=== PATIENT | male | born 1965 | race Caucasian/White ===

== ENCOUNTER 2017-02-09 15:03 | Emergency (ER) | payer OTHER ==
[2017-02-09 15:12] VITALS: BMI 31.9
[2017-02-09] MEDS ORDERED: PHENERGAN INJ 25 MG ONE (15:17)
[2017-02-09] MEDS ORDERED: DILAUDID INJ ONE (15:17)
[2017-02-09] MEDS ORDERED: DILAUDID INJ IVP PRN (15:21)
[2017-02-09] MEDS ORDERED: PHENERGAN INJ 25 MG IV ONE (15:21)
[2017-02-09] MEDS ORDERED: NS 1000 ML 1,000 ML IV ONE (15:21)
[2017-02-09] MEDS ORDERED: VALIUM INJ IM ONE (16:01)
[2017-02-09] MEDS ORDERED: VALIUM INJ ONE (16:03)
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
== END 2017-02-09 17:27 | disposition home or self-care (01) ==
LOC: ER 15:18
DX: M62.830 Muscle spasm of back (principal); X50.0XXA Overexertion from strenuous movement or load, initial encounter; Y92.69 Other specified industrial and construction area as the place of occurrence of the external cause
CPT/HCPCS: 96365; 96367; 96372; 96374; 96375; 99282; 99283; A4222; J1170; J2550; J3360

== ENCOUNTER 2017-02-12 12:25 | Inpatient (IN) | payer OTHER ==
[2017-02-12 13:12] LABS: BASOPHILS # (AUTO) 0.1 X10^3/uL (0.0-0.1); EOSINOPHILS # (AUTO) 0.1 x10^3/uL (0.0-0.2); MONOCYTES # (AUTO) 0.8 x10^3/uL (0.3-0.8)
[2017-02-12 13:23] LABS: ALANINE AMINOTRANSFERASE 42 Units/L (12-78); ALBUMIN 3.7 g/dL (3.4-5.0); ALKALINE PHOSPHATASE 68 Units/L (46-116); ASPARTATE AMINO TRANSFERASE 24 Units/L (15-37); BLOOD UREA NITROGEN 16 mg/dL (7-18); CALCIUM 9.4 mg/dL (8.5-10.1); CARBON DIOXIDE 29.3 mmol/L (21-32); CHLORIDE 105 mmol/L (98-107); CREATININE 1.45 mg/dL (0.70-1.30); SODIUM 141 mmol/L (136-145); TOTAL PROTEIN 7.1 g/dL (6.4-8.2); eGFR BLACK RACES > 60 (>60); eGFR NON BLACK RACES 55 (>60)
[2017-02-12 13:30] VITALS: BMI 31.1
[2017-02-12 13:40] LABS: BASOPHILS % (AUTO) 0.6 % (0.2-1.0); EOSINOPHILS % (AUTO) 1.2 % (0.9-2.9); HEMOGLOBIN 16.3 g/dL (13.5-18.0); LYMPHOCYTES # (AUTO) 1.9 X10^3/uL (1.3-2.9); LYMPHOCYTES % (AUTO) 21.1 % (21.0-51.0); MEAN CORPUSCULAR HEMOGLOBIN 31.4 pg (27.0-34.0); MEAN CORPUSCULAR HGB CONC 34.6 g/dL (33.0-35.0); MEAN CORPUSCULAR VOLUME 90.6 fL (80.0-100.0); MEAN PLATELET VOLUME 7.8 fL (7.4-11.0); MONOCYTES % (AUTO) 8.6 % (0.0-13.0); NEUTROPHILS # (AUTO) 6.2 x10^3/uL (2.2-4.8); NEUTROPHILS % (AUTO) 68.5 % (42.0-75.0); PLATELET COUNT 230 X10^3/uL (150.0-450.0); RED BLOOD COUNT 5.18 X10^6/uL (4.7-6.0); RED CELL DISTRIBUTION WIDTH 13.1 % (11.6-16.5)
[2017-02-12] MEDS: NS 1000 ML 1,000 ML IV SCH ×2 (14:06→14:08)
[2017-02-12] MEDS: TORADOL 30 MG VIAL IVP SCH ×2 (14:06→18:20)
[2017-02-12] MEDS: SOLU-Medrol 40 MG VIAL IVP SCH ×3 (14:07→22:04)
[2017-02-12] MEDS: VALIUM PO SCH ×2 (14:09→22:04)
--- NOTE | 2017-02-12 17:43 | MRI ---
History: Intractable lower back pain with left lower extremity radiculopathy. Study: MRI lumbar spine without contrast. Comparison: None available. Technique: Multiplanar MR images of the lumbar spine were obtained. No I.V. contrast was administered . Findings: There is anatomic alignment without fracture, listhesis or spondylolysis. Multilevel disc d esiccation with [id number] disc height loss. Associated Schmorl's nodes and type 2 Modic endpla te changes. Otherwise, normal bone marrow signal is seen throughout. Conus medullaris terminates at L 1. Visualized spinal cord is normal in signal characteristics, course, and caliber. 6.0 cm simple marisel earing cyst seen within the right superior renal pole. The soft tissues are otherwise unremarkable. L1-2 disc level: Broad-based disc bulge with small right paracentral disc protrusion causing mild rig ht neural foraminal narrowing. No significant left neural foraminal narrowing or spinal canal stenosi s. Suggestion of a posterior annular tear. L2-3 disc level: No disc protrusion is seen. There is no neural foramina or spinal canal stenosis. L3-4 disc level: Broad-based disc bulge that extends into the lateral recesses causing mild/moderate right and moderate left neural foraminal narrowing. Spinal canal stenosis to 10 mm. L4-5 disc level: Broad-based disc bulge that extends into the lateral recesses causing moderate bilat eral neural foraminal narrowing and spinal canal stenosis to 11 mm. L5-S1 disc level: Broad-based disc bulge with large central disc protrusion causing moderate to sever e bilateral neural foraminal narrowing and spinal canal stenosis to 7 mm. Multilevel mild to moderate facet/ligamentum flavum hypertrophy. Impression: Multilevel degenerative changes of the lumbar spine as above. Reported By:
[2017-02-12] MEDS ORDERED: ZYLOPRIM PO PRN (20:43)
[2017-02-12] MEDS ORDERED: CRESTOR TAB 10 MG PO SCH (21:00)
[2017-02-12] MEDS ORDERED: NexIUM PO SCH (21:00)
[2017-02-12] MEDS ORDERED: NEURONTIN TAB 600 MG PO SCH (21:00)
[2017-02-12] MEDS: TEMOVATE CREAM TOP SCH (22:03)
[2017-02-13] MEDS: SOLU-Medrol 40 MG VIAL IVP SCH ×2 (05:59→13:05)
[2017-02-13] MEDS: VALIUM PO SCH ×2 (05:59→13:05)
[2017-02-13] MEDS: TORADOL 30 MG VIAL IVP SCH ×3 (06:00→13:05)
[2017-02-13] MEDS: NS 1000 ML 1,000 ML IV SCH (06:05)
[2017-02-13 06:16] LABS: ALANINE AMINOTRANSFERASE 42 Units/L (12-78); ALBUMIN 3.6 g/dL (3.4-5.0); ALKALINE PHOSPHATASE 68 Units/L (46-116); ASPARTATE AMINO TRANSFERASE 24 Units/L (15-37); BLOOD UREA NITROGEN 19 mg/dL (7-18); CALCIUM 9.5 mg/dL (8.5-10.1); CARBON DIOXIDE 25.2 mmol/L (21-32); CHLORIDE 107 mmol/L (98-107); COR NA(FOR HYPERGLY) 144 mmol/L (136-145); CREATININE 1.24 mg/dL (0.70-1.30); SODIUM 143 mmol/L (136-145); TOTAL PROTEIN 7.2 g/dL (6.4-8.2); eGFR BLACK RACES > 60 (>60); eGFR NON BLACK RACES > 60 (>60)
[2017-02-13 06:37] LABS: BASOPHILS % (AUTO) 0.1 % (0.2-1.0); HEMATOCRIT 48.1 % (42.0-54.0); HEMOGLOBIN 16.9 g/dL (13.5-18.0); LYMPHOCYTES % (AUTO) 6.7 % (21.0-51.0); MEAN CORPUSCULAR HEMOGLOBIN 31.4 pg (27.0-34.0); MEAN CORPUSCULAR VOLUME 89.8 fL (80.0-100.0); MEAN PLATELET VOLUME 7.8 fL (7.4-11.0); MONOCYTES # (AUTO) 0.2 x10^3/uL (0.3-0.8); MONOCYTES % (AUTO) 1.3 % (0.0-13.0); NEUTROPHILS # (AUTO) 13.7 x10^3/uL (2.2-4.8); NEUTROPHILS % (AUTO) 91.9 % (42.0-75.0); PLATELET COUNT 298 X10^3/uL (150.0-450.0); RED BLOOD COUNT 5.36 X10^6/uL (4.7-6.0); RED CELL DISTRIBUTION WIDTH 12.7 % (11.6-16.5); WHITE BLOOD COUNT 14.9 X10^3/uL (3.6-10.0)
[2017-02-13 06:51] LABS: BAND NEUTROPHILS % 1 % (0-10); PLATELET MORPHOLOGY COMMENT NORMAL (NORMAL)
[2017-02-13] MEDS ORDERED: MOBIC TAB 15 MG PO SCH (09:00)
[2017-02-13] MEDS: TEMOVATE CREAM TOP SCH (09:45)
[2017-02-13 13:27] VITALS: BP 136/83
--- NOTE | 2017-02-13 14:51 | DR.UPDATE ---
H&P Update History and Physical Update: WAS SEEN IN THE OFFICE ON 02/12/17. A H&P WAS COMPLETED PRIOR TO ADMISSION. ON ADMISSION, LABS AND A LUMBAR SPINE MRI WITHOUT CONTRAST WAS OBTAINED. ABNORMAL LAB VALUES INCLUDE THE FOLLOWING: CREATININE 1.45, GFR 55, TOTAL BILI 1.60. LUMBAR SPINE MRI REPORTED MULTILEVEL MILD TO MODERATE FACET/ LIGIMENTUM FLAVUM HYPERTROPHY AND DEGENERATIVE CHANGES OF THE LUMBAR SPINE. SPECIFICALLY, THERE L5-S1 HAS BROAD BASED DISC BULGE WITH LARGE CENTRAL DISC PROTRUSION CAUSING MODERATE TO SEVERE BILATERAL NEURAL FORAMINAL NARROWING AND SPINAL CANAL STENOSIS TO 7MM. NO CHANGES MADE TO H&P. Changes noted: NO Yes with the following:
== END 2017-02-13 13:40 | disposition home or self-care (01) | DRG 552 ==
LOC: MED/SURG 12:25 → UNDOADMIN 12:27
PROVIDERS: ADMIT Internal Medicine; ATTEND Internal Medicine
DX: M54.5 Low back pain (principal); M79.605 Pain in left leg; I10 Essential (primary) hypertension; R55 Syncope and collapse; K21.9 Gastro-esophageal reflux disease without esophagitis; M51.26 Other intervertebral disc displacement, lumbar region; M48.061 Spinal stenosis, lumbar region without neurogenic claudication
CPT/HCPCS: 36415; 72148; 80053; 85025; A4216; A4222; J1885; J2920

== ENCOUNTER → 2017-05-09 | Outpatient (CLI) | payer OTHER ==
--- NOTE | 2017-05-09 10:53 | MRI ---
MRI SPINE CERVICAL WITHOUT CONTRAST CLINICAL HISTORY: 51-year-old male with neck pain and radicular symptoms. COMPARISON: None. Technique: Multiplanar, multisequence MRI images of the cervical spine were obtained without the adm inistration of intravenous contrast. FINDINGS: Straightening of the cervical lordosis as imaged. Subtle degenerative retrolisthesis C3 on C4 and C4 on C5. The craniocervical junction is normal. Vertebral body and disc space height are main tained. Vertebral marrow and intervertebral disc space signal are normal. Cord signal is normal. Th e visualized posterior fossa structures are normal. C2-C3: No central canal stenosis with mild left neural foraminal stenosis secondary to facet hypertro phy. C3-C4: Broad-based disc osteophyte complex narrows canal to 11.2 mm. Subtle flattening of the ventral cord without signal change. Uncovertebral and facet joint hypertrophy combine to produce mild bilate ral neural foraminal stenosis. C4-C5: Broad-based disc osteophyte with a central component. Canal is preserved at 12.3 mm. Uncoverte bral facet joint hypertrophy combine to produce moderate right neural foraminal stenosis. C5-C6: Broad-based disc osteophyte with a left central annular fissure and asymmetric left central co mponent. Central canal measures 10.8 mm. There is subtle flattening of the central cord without cord signal change. Uncovertebral and facet joint hypertrophy combine to produce moderate bilateral neural foraminal stenosis. C6-C7: Central/left central disc osteophyte narrows canal at 10.7 mm with mild flattening of the vent ral cord without cord signal change. Uncovertebral joint hypertrophy with spurring produces moderate to severe right and mild left neural foraminal stenosis. C7-T1: No central canal or neural foraminal stenosis. No acute fracture or malalignment. Paraspinous soft tissues are unremarkable. IMPRESSION: 1. Multilevel disc degeneration and spondyloarthropathy with varying degrees of central canal and vijaya ral foraminal stenosis. 2. See level by level descriptions above. Reported By:
--- NOTE | 2017-05-09 11:05 | MRI ---
MRI SPINE THORACIC WITHOUT CONTRAST CLINICAL HISTORY: 51-year-old male with mid thoracic pain. COMPARISON: None. TECHNIQUE: Multiplanar, multisequence MRI images of the thoracic spine were obtained prior to and fo llowing the uneventful intravenous administration of contrast. FINDINGS: There is a normal thoracic kyphosis. Alignment is maintained. Schmorl's node endplates at the T7-T8, T9-T10, T11-T12, T12-L1 intervertebral discs levels as well as inferior endplate T10 type 2 endplate changes anteriorly T5-T7 and T8-T9. Remaining vertebral marrow and body heights are preserved. Overal l intervertebral disc height and signal is preserved. At T2-T3: Significant left facet hypertrophy produces mild left neural foraminal stenosis. At T6-T7: Central disc extrusion with approximate 6 mm superior migration effaces the ventral subarac hnoid spaces and flattens the ventral cord with subtle, patchy, diffuse T2 hyperintense signal at thi s level. Central canal measures 8.2 mm. At T7-T8: Broad-based disc osteophyte complex narrows the central canal at 10.3 mm without cord impin gement or contour deformity. No cord signal change. At T10-T11: Symmetric disc bulge with left much greater than right facet arthropathy and thickened li gamentum flavum producing contour deformity of the dorsal thecal sac, left greater than right. There is subtle flattening of the left dorsal cord without cord signal change. Moderate to severe left neur al foraminal stenosis with compressive flattening of the exiting left T10 nerve root. No acute fracture or malalignment. 6.1 cm simple appearing right renal cysts. Remaining paraspinous soft tissues are unremarkable. IMPRESSION: 1. Multiple level disc degeneration and spondyloarthropathy with central disc extrusion at T6-T7 and resultant cord impingement with edema/myelomalacia. 2. Moderate to severe left-sided neural foraminal stenosis T10-T11 with compressive flattening of the exiting nerve root. 3. See above discussion. Reported By:
== END | disposition home or self-care (01) | DRG 552 ==
LOC: RAD 08:17
PROVIDERS: ATTEND Orthopaedic Surgery Orthopaedic Surgery of the Spine
DX: M47.12 Other spondylosis with myelopathy, cervical region (principal); M47.14 Other spondylosis with myelopathy, thoracic region; G95.29 Other cord compression; G95.89 Other specified diseases of spinal cord; M51.34 Other intervertebral disc degeneration, thoracic region; M47.894 Other spondylosis, thoracic region; M47.892 Other spondylosis, cervical region; M25.78 Osteophyte, vertebrae; M48.02 Spinal stenosis, cervical region; N28.1 Cyst of kidney, acquired
CPT/HCPCS: 72141; 72146